=== PATIENT | male | born 1940 | race Caucasian/White ===

== ENCOUNTER 2022-09-27 08:54 | Oncology outpatient (recurring) (ONCR) | payer MEDICARE, OTHER, SELFPAY ==
[2022-09-18 10:31] LABS: Basophils # 0.2 10^3/uL (0.0-0.1); Basophils % 1.2 %; Eosinophils # 0.4 10^3/uL (0.0-0.8); Hematocrit 49.6 % (42.0-52.0); Hemoglobin 15.1 g/dL (11.7-16.6); Lymphocytes # 2.2 10^3/uL (0.8-4.8); Lymphocytes % 12.4 %; Mean Corpuscular HGB Conc 30.4 g/dL (30.0-36.0); Mean Corpuscular Volume 75.5 fl (80-94); Monocytes # 1.8 10^3/uL (0.2-0.9); Monocytes % 9.9 %; Neutrophils # 13.27 10^3/uL (1.8-7.7); Neutrophils % 73.8 %; Nucleated Red Blood Cells % 0 %; Platelet Count 356 10^3/cmm (130-400); Red Blood Count 6.57 10^6/uL (4.1-5.3); Red Cell Distribution Width 20.9 % (12.1-15.1)
[2022-09-18 10:56] LABS: LAB Peripheral Smear Sent for Review
[2022-09-18 11:06] LABS: Alanine Aminotransferase 28 U/L (0-41); Albumin Level 4.2 g/dL (3.5-5.2); Alkaline Phosphatase 133 U/L (40-130); Anion Gap 14.2 (5-19); Aspartate Amino Transferase 28 U/L (0-40); Blood Urea Nitrogen 16 mg/dL (8-23); Calcium 9.2 mg/dL (8.5-10.5); Carbon Dioxide 25 mmol/L (22-29); Chloride 103 mmol/L (98-107); Globulin 2.7 g/dL (1.3-4.6); Glucose 96 mg/dL (65-115); Iron 22 ug/dL (59-158); Lactate Dehydrogenase 142 U/L (135-225); Osmolality Calculated 287 mOsm/kg (285-295); Percent Saturation 5.3 % (20-50); Potassium 4.2 mmol/L (3.5-5.1); Sodium 138 mmol/L (136-145); Thyroid Stimulating Hormone 1.25 uIU/mL (0.27-4.20); Total Bilirubin 0.5 mg/dL (0.15-1.2); Total Iron Binding Capacity 408 mcg/dl; Total Protein 6.9 g/dL (6.6-8.7); Unsaturated Iron Binding 386 ug/dL (112-347); Vitamin B12 597 pg/mL (232-1245)
[2022-09-18 11:11] LABS: Mean Platelet Volume 10.6 fL (7.4-10.4)
[2022-09-18 11:12] LABS: Slide Review Slide Review Perform
== END 2022-10-01 23:59 | disposition home or self-care (01) ==
PROVIDERS: PCP Family Medicine; Visit Provider Internal Medicine Medical Oncology
DX: D45 Polycythemia vera (principal); D72.820 Lymphocytosis (symptomatic); D75.839 Thrombocytosis, unspecified; R53.83 Other fatigue; D50.9 Iron deficiency anemia, unspecified; F17.210 Nicotine dependence, cigarettes, uncomplicated; Z79.899 Other long term (current) drug therapy; Z79.82 Long term (current) use of aspirin
CPT/HCPCS: 36415; 80053; 82607; 83540; 83550; 83615; 84443; 85025; 99205; 99215

== ENCOUNTER → 2022-10-16 11:02 | Outpatient (BNVA) | payer MEDICARE, OTHER, SELFPAY | PROVIDERS: PCP Family Medicine; Visit Provider Nurse Practitioner | DX: D45 Polycythemia vera (principal) | CPT/HCPCS: 99214 ==

== ENCOUNTER 2022-10-29 11:05 | Oncology outpatient (recurring) (ONCR) | payer MEDICARE, OTHER, SELFPAY ==
[2022-10-16 11:58] LABS: Basophils # 0.1 10^3/uL (0.0-0.1); Basophils % 1.4 %; Eosinophils # 0.1 10^3/uL (0.0-0.8); Hematocrit 50.1 % (42.0-52.0); Hemoglobin 15.4 g/dL (11.7-16.6); Lymphocytes # 2.2 10^3/uL (0.8-4.8); Lymphocytes % 21.6 %; Mean Corpuscular HGB Conc 30.7 g/dL (30.0-36.0); Mean Corpuscular Hemoglobin 24.4 pg (28.0-34.0); Mean Corpuscular Volume 79.4 fl (80-94); Monocytes # 0.7 10^3/uL (0.2-0.9); Neutrophils # 6.98 10^3/uL (1.8-7.7); Neutrophils % 68.7 %; Nucleated Red Blood Cells % 0 %; Platelet Count 130 10^3/cmm (130-400); Red Blood Count 6.31 10^6/uL (4.1-5.3); Red Cell Distribution Width 21.5 % (12.1-15.1); White Blood Count 10.2 10^3/uL (4.0-10.0)
[2022-10-16 12:14] LABS: Alanine Aminotransferase 22 U/L (0-41); Albumin Level 4.1 g/dL (3.5-5.2); Alkaline Phosphatase 107 U/L (40-130); Anion Gap 16.6 (5-19); Aspartate Amino Transferase 19 U/L (0-40); Blood Urea Nitrogen 14 mg/dL (8-23); Calcium 9.1 mg/dL (8.5-10.5); Carbon Dioxide 24 mmol/L (22-29); Chloride 101 mmol/L (98-107); Globulin 2.9 g/dL (1.3-4.6); Glucose 91 mg/dL (65-115); Osmolality Calculated 284 mOsm/kg (285-295); Potassium 4.6 mmol/L (3.5-5.1); Sodium 137 mmol/L (136-145); Total Bilirubin 0.6 mg/dL (0.15-1.2)
[2022-10-16 12:36] LABS: Mean Platelet Volume 10.4 fL (7.4-10.4)
[2022-10-16 12:37] LABS: Slide Review Slide Review Perform
[2022-10-29 11:44] VITALS: BP 173/75; PULSE 69; RESP 18; TEMP 36.2; O2SAT 98
[2022-10-29 11:48] LABS: Basophils # 0.1 10^3/uL (0.0-0.1); Basophils % 1.4 %; Eosinophils # 0.1 10^3/uL (0.0-0.8); Eosinophils % 1.4 %; Hematocrit 50.5 % (42.0-52.0); Hemoglobin 16.2 g/dL (11.7-16.6); Lymphocytes # 1.9 10^3/uL (0.8-4.8); Lymphocytes % 22.5 %; Mean Corpuscular HGB Conc 32.1 g/dL (30.0-36.0); Mean Corpuscular Hemoglobin 26.1 pg (28.0-34.0); Mean Corpuscular Volume 81.5 fl (80-94); Mean Platelet Volume 10.5 fL (7.4-10.4); Monocytes # 0.7 10^3/uL (0.2-0.9); Monocytes % 8.2 %; Neutrophils # 5.47 10^3/uL (1.8-7.7); Neutrophils % 65.9 %; Nucleated Red Blood Cells % 0 %; Platelet Count 264 10^3/cmm (130-400); Red Cell Distribution Width 24.1 % (12.1-15.1); White Blood Count 8.3 10^3/uL (4.0-10.0)
[2022-10-29 12:26] LABS: Slide Review Slide Review Perform
[2022-10-29 13:34] VITALS: BP 128/79; PULSE 61; RESP 18; TEMP 36.3; O2SAT 96
== END 2022-11-01 23:59 | disposition home or self-care (01) ==
PROVIDERS: Nurse Practitioner; PCP Family Medicine; Visit Provider Internal Medicine Medical Oncology
DX: D45 Polycythemia vera (principal)
CPT/HCPCS: 36415; 80053; 85025; 99195; 99214

== ENCOUNTER 2022-11-20 13:05 | Oncology outpatient (recurring) (ONCR) | payer MEDICARE, OTHER, SELFPAY ==
[2022-11-20 13:41] VITALS: BP 146/88; PULSE 58; TEMP 35.9; O2SAT 99
[2022-11-20 14:13] LABS: Basophils % 0.5 %; Eosinophils # 0.1 10^3/uL (0.0-0.8); Eosinophils % 1.8 %; Hematocrit 41.8 % (42.0-52.0); Lymphocytes % 26.3 %; Mean Corpuscular HGB Conc 33.5 g/dL (30.0-36.0); Mean Corpuscular Hemoglobin 28.3 pg (28.0-34.0); Mean Corpuscular Volume 84.4 fl (80-94); Monocytes # 0.8 10^3/uL (0.2-0.9); Monocytes % 10.8 %; Neutrophils # 4.44 10^3/uL (1.8-7.7); Neutrophils % 59.9 %; Nucleated Red Blood Cells % 0 %; Platelet Count 124 10^3/cmm (130-400); Red Blood Count 4.95 10^6/uL (4.1-5.3); Red Cell Distribution Width 27.3 % (12.1-15.1); White Blood Count 7.4 10^3/uL (4.0-10.0)
[2022-11-20 14:25] LABS: Alanine Aminotransferase 30 U/L (0-41); Albumin Level 4.1 g/dL (3.5-5.2); Alkaline Phosphatase 102 U/L (40-130); Blood Urea Nitrogen 13 mg/dL (8-23); Calcium 9.3 mg/dL (8.5-10.5); Carbon Dioxide 27 mmol/L (22-29); Chloride 100 mmol/L (98-107); Globulin 2.9 g/dL (1.3-4.6); Glucose 92 mg/dL (65-115); Osmolality Calculated 284 mOsm/kg (285-295); Sodium 137 mmol/L (136-145); Total Bilirubin 0.3 mg/dL (0.15-1.2)
[2022-11-20 14:29] LABS: Anion Gap 14.9 (5-19); Aspartate Amino Transferase 26 U/L (0-40); Potassium 4.9 mmol/L (3.5-5.1)
[2022-11-20 14:37] LABS: Slide Review Slide Review Perform
== END 2022-12-01 23:59 | disposition home or self-care (01) ==
PROVIDERS: PCP Family Medicine; Visit Provider Internal Medicine Medical Oncology
DX: D45 Polycythemia vera (principal); D72.829 Elevated white blood cell count, unspecified; F17.210 Nicotine dependence, cigarettes, uncomplicated; Z79.899 Other long term (current) drug therapy; Z79.82 Long term (current) use of aspirin
CPT/HCPCS: 36415; 80053; 85025; 99214

== ENCOUNTER 2023-01-19 10:35 | Inpatient (IN) | payer MEDICARE, OTHER, SELFPAY ==
[2023-01-19] VITALS (40 sets, daily range): BP systolic 113–165; BP diastolic 51–86; PULSE 55–88; RESP 14–27; TEMP 36.1–36.8; O2SAT 90–99; BMI 27.3
--- NOTE | 2023-01-19 10:45 | ECG_ITS ---
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 Measurements Intervals [place] Rate: 57 P: 75 LA: 198 QRS: 43 QRSD: 110 T: 110 QT: 368 QTc: 359 Interpretive Statements SINUS BRADYCARDIA INFERIOR MYOCARDIAL INFARCTION , POSSIBLY ACUTE [40+ ms Q WAVE AND/OR ST/T ABNORMALITY IN II/aVF] ACUTE VA No previous ECG available for comparison Electronically Signed On 01-20-2023 7:58:27 CDT by Óscar Tipton M.D. [id number]
--- NOTE | 2023-01-19 10:45 | W.ED.CHESTPA ---
HPI - Chest Pain General: Chief Complaint: Chest Pain Stated Complaint: chest pain Time Seen by Provider: 01/19/23 10:45 History of Present Illness: Mr. Diaz is an 82-year-old gentleman with history of hypertension and hyperlipidemia as well as polycythemia presenting to the emergency department for chest pain. Upon review of EKG STEMI activation. Patient endorses symptoms onset this morning though is unsure of exactly how long. Left chest radiation to the arm and left neck severe in intensity with heaviness. Endorses dyspnea. Denies frequent similar episodes in the past. Only minimal transient relief with nitro x4 and he took 81 mg of aspirin this morning. No other specific changes in health, exacerbating, or alleviating factors identified. Patient is a smoker. Upon clarification of clinical history from patient's daughter is that apparently he began having chest pain and was seen at [place] [facility] approximately 1 month ago. Admission was recommended which she declined. Had follow-up and was started on probably an isosorbide type medication. Probably has had worsening chest pain over the past 3 days however severe today probably around 330 AM. Review of Systems General: Reports: 10 or more systems reviewed and unremarkable except in HPI and below PFSH ED PFSH: Medical History (Updated 01/22/23 @ 00:01 by SB Alba) Depression Essential hypertension Hypercholesteremia Hypertension Polycythemia rubra vera ST elevation myocardial infarction (STEMI) Surgical History History of back surgery x 2, in 1995 and in 2019 History of bilateral carpal tunnel release History of carotid endarterectomy Family History Brother Chronic kidney disease (CKD) Due to hepatitis Other CAD (coronary artery disease) Cancer Diabetes Hyperlipidemia Hypertension Lung disease Stroke Denies family history of Clotting disorder Dementia Psychiatric illness Suicide Anesthesia complication Bleeding disorder Social History Smoking and tobacco status: current every day smoker cigarettes Packs smoked per day: 1 Years cigarettes smoked: 60 Alcohol intake: never Physical Exam Const: COMMON NORMALS: alert GENERAL APPEARANCE: cooperative, well developed and ill appearing HENMT: COMMON NORMALS: normocephalic and atraumatic HEAD & SCALP: normocephalic and atraumatic THROAT: posterior oropharynx normal Eye: COMMON NORMALS: conjunctivae normal CONJUNCTIVA: Yes conjunctivae normal SCLERA: sclerae normal Neck/C-Spine: COMMON NORMALS: supple GENERAL: Yes trachea midline Resp: COMMON NORMALS: clear to auscultation bilaterally EFFORT & INSPECTION: Yes able to speak in complete sentences AUSCULTATION: clear to auscultation bilaterally Cardio: COMMON NORMALS: regular rate and regular rhythm RATE: regular rate RHYTHM: regular rhythm GI: COMMON NORMALS: Soft to palpation PALPATION: Yes Soft to palpation and No Tenderness to palpation present (GI) Extremity: GENERAL: Yes normal exam except as noted and No edema Neuro: COMMON NORMALS: moves all extremities SENSORIUM/ORIENTATION: Yes alert and No Orientation impaired Course Vital Signs: Vital signs: Vital Signs Temperature 97.9 F 01/21/23 08:00 Pulse Rate 114 H 01/21/23 11:49 Respiratory Rate 24 H 01/21/23 11:00 Blood Pressure 137/86 01/21/23 11:00 Pulse Oximetry 95 01/21/23 11:49 Oxygen Delivery Me thod Room Air 01/21/23 11:48 Oxygen Flow Rate 2 01/21/23 10:00 MDM - Chest Pain Medical Decision Making 82-year-old gentleman presenting with chest pain. STEMI activation called upon review of chest x-ray. Patient assessed at bedside. Somewhat limited history with regards to detail which is apparently chronic. I do not appreciate focal neurologic deficits. Patient is somewhat ill-appearing. Symmetric pulses end clear lung sounds. Balance of aspirin ordered as well as Plavix and heparin. Cardiology at bedside for evaluation. Chest x-ray with no lobar consolidation or pneumothorax. Laboratory studies pending at time of admission as patient is taken emergently to [facility] for left heart cath. Overall condition remained similar. He was noted to have bradycardia with maintained blood pressure and occasional arrhythmia with PVCs. Medical Records I reviewed the patient's medical records. Lab Data I reviewed the patient's lab results. 01/20/23 03:47 01/20/23 03:47 Radiology Impressions Chest X-Ray 01/19/23 10:46 IMPRESSION: No acute cardiopulmonary abnormality. Laboratory Results WBC 12.4 10^3/uL (4.0-10.0) H 01/19/23 10:45 RBC 3.92 10^6/uL (4.1-5.3) L 01/19/23 10:45 Hgb 13.8 g/dL (11.7-16.6) 01/19/23 10:45 Hct 41.2 % (42.0-52.0) L 01/19/23 10:45 MCV 105.1 fl (80-94) H 01/19/23 10:45 MCH 35.2 pg (28.0-34.0) H 01/19/23 10:45 MCHC 33.5 g/dL (30.0-36.0) 01/19/23 10:45 RDW Not Reportable 01/19/23 10:45 Plt Count 215 10^3/cmm (130-400) 01/19/23 10:45 MPV 12.1 fL (7.4-10.4) H 01/19/23 10:45 Neut % (Auto) 67.6 % 01/19/23 10:45 Lymph % (Auto) 18.6 % 01/19/23 10:45 Arroyo % (Auto) 11.2 % 01/19/23 10:45 Eos % (Auto) 1.0 % 01/19/23 10:45 Baso % (Auto) 0.8 % 01/19/23 10:45 Neut # (Auto) 8.41 10^3/uL (1.8-7.7) H 01/19/23 10:45 Lymph # (Auto) 2.3 10^3/uL (0.8-4.8) 01/19/23 10:45 Arroyo # (Auto) 1.4 10^3/uL (0.2-0.9) H 01/19/23 10:45 Eos # (Auto) 0.1 10^3/uL (0.0-0.8) 01/19/23 10:45 Baso # (Auto) 0.1 10^3/uL (0.0-0.1) 01/19/23 10:45 Nucleated RBC % (auto) 0 % 01/19/23 10:45 Nucleated RBCs # 0.0 /100WBC 01/19/23 10:45 Poikilocytosis Trace 01/19/23 10:45 Anisocytosis 2+ H 01/19/23 10:45 Macrocytosis 3+ H 01/19/23 10:45 Target Cells Trace 01/19/23 10:45 Acanthocytes (Spur) Trace 01/19/23 10:45 PT 14.30 SECONDS (12.1-14.9) 01/19/23 10:45 INR 1.07 (0.8-1.2) 01/19/23 10:45 APTT 28.1 SECONDS (23.9-36.7) 01/19/23 10:45 Sodium 134 mmol/L (136-145) L 01/19/23 10:45 Potassium 4.5 mmol/L (3.5-5.1) 01/19/23 10:45 Chloride 99 mmol/L (98-107) 01/19/23 10:45 Carbon Dioxide 24 mmol/L (22-29) 01/19/23 10:45 Anion Gap 15.5 (5-19) 01/19/23 10:45 BUN 15 mg/dL (8-23) 01/19/23 10:45 Creatinine 1.0 mg/dL (0.7-1.2) 01/19/23 10:45 GFR Calculation Not Reportable 01/19/23 10:45 Glucose 102 mg/dL (65-115) 01/19/23 10:45 Calculated Osmolality 279 mOsm/kg (285-295) L 01/19/23 10:45 Calcium 8.9 mg/dL (8.5-10.5) 01/19/23 10:45 Total Bilirubin 0.6 mg/dL (0.15-1.2) 01/19/23 10:45 AST 17 U/L (0-40) 01/19/23 10:45 ALT 19 U/L (0-41) 01/19/23 10:45 Alkaline Phosphatase 113 U/L (40-130) 01/19/23 10:45 Troponin T Baseline 18 ng/L (0-15) H 01/19/23 10:45 NT-Pro-B Natriuret Pep 251 pg/mL (0-450) 01/19/23 10:45 Total Protein 7.3 g/dL (6.6-8.7) 01/19/23 10:45 Albumin 4.4 g/dL (3.5-5.2) 01/19/23 10:45 Globulin 2.9 g/dL (1.3-4.6) 01/19/23 10:45 Lipase 23 U/L (13-60) 01/19/23 10:45 Critical Care Time Critical Care Time: Critical Care Time: Yes Total Critical Care Time: 32 Attestation: Due to a high probability of clinically significant, possibly life threatening deterioration, the patient required my highest level of attention and preparedness to intervene emergently and I personally spent this critical care time directly and personally managing the patient. This critical care time included obtaining a history; examining the patient; pulse oximetry; ordering and review of laboratory and imaging studies; arranging urgent treatment with development of a management plan; evaluation of patient's response to treatment; frequent reassessment; and, discussions with other providers as applicable. It was exclusive of separately billable procedures. Primary system involved is cardiovascular Discharge Plan Discharge Patient Disposition: Admitted As Inpatient Admit Provider: Moustapha Wright Clinical Impression: ST elevation myocardial infarction (STEMI) Condition: Stable Discharge Diet: Cardiac Discharge Activity: Increase activity as tolerated Coding Level of Care Code ED Bunch Breaker Machine Operator for Angy Ngo
--- NOTE | 2023-01-19 10:46 | XRR_ITS ---
PROCEDURE INFORMATION: Exam: XR Chest Exam date and time: 01/19/2023 10:57 AM Age: 82 years old Clinical indication: Pain; Chest pressure; Additional info: Cp TECHNIQUE: Imaging protocol: Radiologic exam of the chest. Views: 1 view. COMPARISON: No relevant prior studies available. FINDINGS: Lungs: No focal airspace disease. Pleural spaces: Unremarkable. No pleural effusion. No pneumothorax. Heart/Mediastinum: Cardiomediastinal silhouette is within normal limits. Bones/joints: Unremarkable. XR/XR chest 1V portable [id number] IMPRESSION: No acute cardiopulmonary abnormality.
[2023-01-19] MEDS: clopidogrel 300 mg Tablet 600 MG PO (10:51)
[2023-01-19] MEDS: heparin 5,000 unit/mL INJ 1 mL 4000 UNIT IVP (10:52)
[2023-01-19] MEDS: aspirin 81 mg Chew Tablet 243 MG PO (10:52)
[2023-01-19] MEDS: sodium chloride 0.9% 1,000 ML 999 ML IV (10:58)
[2023-01-19] MEDS: fentaNYL 50 mcg/mL INJ 2mL IVP (10:58)
--- NOTE | 2023-01-19 11:02 | XACV_ITS ---
Exam Room: [facility] Ht: 170 cm Wt: 79 kg BSA: 1.95 m2 Gender: Male : 1940 Exam Priority: Routine Indication(s): - Acute inferior GA Procedure(s): Procedure Description: Diagnostic procedure Procedure Description: PCI procedure Procedure Description: Left Heart Catheterization Procedure Description: Left ventriculography Procedure Description: PTCA Procedure Description: Coronary Angiography Adriana MCINTYRE; Diagnostic Cath Status: Emergency Diagnostic Findings * Patient arrived as a STEMI alert. Chest pain for several hours prior to arrival. Time delay between onset of pain and arrival to the emergency room is approximately 7 hours. EKG reveals acute ST segment elevation in the inferior leads. Patient had some episodes of bradycardia and junctional rhythm in the emergency room. Appropriate medications given in the ER. * Fluoroscopy revealed heavily calcified arteries to include all 3 major vessels. The right coronary artery appeared to be the culprit vessel. It is closed in the midportion. The area of closure is very heavily calcified. The left main coronary artery is unremarkable. The circumflex is essentially normal. The LAD is occluded in the proximal portion. As mentioned, all vessels are heavily calcified.. PCI Status: Emergency PCI LVEF Assessed: Yes PCI Indication: Immediate PCI for STEMI Interventional Findings * All vessels are heavily calcified. The occluded right coronary artery was difficult to negotiate due to the heavy calcification. A cougar wire would not cross the lesion. A run-through wire finally crossed after many minutes of attempting to cross the vessel. The calcification prevented the wire from crossing. A guide liner had to be used in order to support the wire. Initially I attempted a 2 mm balloon which would not cross the lesion. I placed a 1.2 mm balloon and with great difficulty was able to cross the lesion. Angioplasty was undertaken with a 1.2 mm balloon followed by 2 mm balloon followed by 3 mm balloon. A 4 mm balloon would not cross the lesion nor would a 4 mm stent. The procedure was terminated after attempts were made to cross the vessel. There was distal flow in the artery at the end of the procedure however my suspicions are great that the vessel will not stay open. This patient would be a candidate for an atherectomy. There was a significant delay in crossing the lesion due to the heavy calcification.. Decision for PCI with Surgical Consult: No PCI for Multi-vessel Disease: No Conclusions 1. Acute inferior wall myocardial infarction with occluded right coronary artery heavily calcified. Difficult intervention due to heavy calcification. Unable to pass a stent. Recommendations * Coronary artery atherectomy. Interventional RX Recommendation: PCI w/o planned CABG Diagnostic RX Recommendation: PCI w/o planned CABG Anticoagulation: Heparin Ventriculography Ejection Fraction: 50.0 % Pressures Phase:Rest AO : 93 / 57 ( 75 ) @ 12:30:00 PM 94 / 56 ( 74 ) @ 12:35:00 PM 114 / 71 ( 92 ) @ 12:43:00 PM 91 / 56 ( 73 ) @ 12:48:00 PM 93 / 63 ( 78 ) @ 12:54:00 PM 110 / 49 ( 72 ) @ 1:11:00 PM 95 / 61 ( 77 ) @ 1:14:00 PM 151 / 70 ( 97 ) @ 1:21:00 PM 132 / 62 ( 81 ) @ 1:21:00 PM LV : 138 / 7 / 27 @ 1:17:00 PM 128 / 28 / 34 @ 1:20:00 PM 147 / 6 / 33 @ 1:21:00 PM 147 / 6 / 32 @ 1:21:00 PM Valves Phase:DefaultPhase AV : 0.0 @ 12:35:13 PM 0.0 @ 12:35:13 PM AV Mean Gradient: 0.0 @ 12:35:13 PM Clinical Evaluation EBL: 5mL-10mL Procedural Details Procedure started. Pre-Procedure Time Out. Identified patient by full name and date of as verbalized by the patient/guarantor. Does the consent match the physician's order: N/A Emergent. Accurate & Complete Informed Consent: N/A Emergent. Inpatient/Outpatient History & Physical on Chart: N/A Emergent. If H&P is completed, is and addenduem needed: N/A Emergent; If yes, is the addendum complete: N/A Emergent. Visualize and Verify Site with Patient/Guarantor: N/A. Relevant Radiology Images available: N/A Emergent. Pre-op teaching completed and patient verbalized understanding. The risks, benefits, and alternatives of sedation and/or procedure were discussed by physician. The patient agrees to continue. Utilization Management Um Nurse Indications: ACS <= 24 hours. Correct patient, site and procedure confirmed by cath team. Current diagnosis: STEMI. PERRLA. Strong, equal hand network support manager bilaterally. Lungs clear x 5 lobes. IV Site on Arrival: 20 gauge in the right anticubital. IV Site on Arrival: 20 gauge in the left anticubital. IV Fluids: 0.9% NaCl at KVO. 100 mL infused prior to engineering laboratory technician. Pre Procedural Pulses: bilateral radial was 2+. Pre Procedural Pulses: bilateral dorsalis pedis was 1+. Oxygen started at 2liters/min via nasal canula. right groin was prepped with chloroprep then draped in the usual sterile fashion. right radial was prepped with chloroprep then draped in the usual sterile fashion. Baseline sample Acquired. HR: 46 BPM. Physician notified. Physician arrived. Physician scrubbed in. Correct Patient: N/A Emergent; Correct Procedure: N/A Emergent; Correct Site: N/A Emergent; Correct Patient Position: N/A Emergent; Correct Supplies: N/A Emergent; Dried Flammable Prep: N/A Emergent; Blood Products Available: N/A Emergent;. Admit Source: Emergency department. Lidocaine 1% infiltrated to the right radial. Arterial access obtained. 6 frisian JR 4 guide catheter was inserted over the wire. [place] guidewire was advanced through the guide catheter to lesion in the distal RCA. Multiple views taken of right coronary artery. Guidewire out. Runthrough guidewire was advanced through the guide catheter to lesion in the distal RCA. 2.0x12 Balloon inserted to lesion in the mid RCA. Uninflated balloon removed. Guideliner in. 1.2x12 Balloon inserted to lesion in the mid RCA. Inflation number : 1 A AB MINI TREK 1.20X12 RX BALLOON was prepped and advanced across the Mid RCA , then inflated to 14 HAMILTON for 0:32 seconds. Inflation number: 2 The AB MINI TREK 1.20X12 RX BALLOON was reinflated across the Mid RCA, to 14 HAMILTON for 0:31 seconds. Results checked. Balloon out. Delay in PCI related to difficulty crossing lesion. Inflation number : 3 A AB MINI TREK 2.00X12 RX BALLOON was prepped and advanced across the Mid RCA , then inflated to 14 HAMILTON for 0:34 seconds. PCI Indication : Immediate PCI for STEMI. Balloon out. 3.0x12 NC Balloon inserted to lesion in the mid RCA. Inflation number : 4 A MDT NC EUPHORA RX 3.24N03AK BALLOON was prepped and advanced across the Mid RCA , then inflated to 12 HAMILTON for 0:40 seconds. Balloon out. 4.0x12 Stent inserted to lesion in the mid RCA. Intact stent removed. 4.0x12 NC Balloon inserted to lesion in the mid RCA. Uninflated balloon, guideliner out. Guide catheter out. 6 frisian XB 3 guide catheter was inserted over the wire. Multiple views taken of left coronary artery. A 5 frisian Angled Pig catheter in over wire. EDP Sample taken: LV 138/7,27; HR: 60 BPM; SpO2: 94%. LV gram performed in MCCRAY @ 10 mL/second for a total of 30 mL. EDP Sample taken: LV 128/28,34; HR: 63 BPM; SpO2: 94%. EDP Sample taken: LV 147/6,33; HR: 65 BPM; SpO2: 94%. Pullback taken: LV 147/6,32; AO 151/70(97); Mean: 0mmHg, Peak to Peak: 0mmHg, SEP: 9sec/min; HR: 65 BPM; SpO2: 94%. Catheter out. Physician scrubbed out. A TR Band was successful obtaining hemostatsis at the Right Radial artery insertion site. Post Procedure: Pulses reassessed and unchanged. PERRLA. Strong, equal hand network support manager bilaterally. No VTE prophylaxis required. Medication's Wasted: Lidocaine 1% = 3 mL. Medication's Wasted: Nitro = 49.8 mg. Medication's Wasted: Heparin = 6000 units. Total IV fluids: 69 mL. PCI Indication: STEMI. Post-op diagnosis: inferior wall GA. Complications: none. Estimated blood loss: 5mL-10mL. Responsiveness - Normal response to verbal stimuli; alert and oriented, PERRLA. Airway - Unaffected, no intervention required; spontaneous ventilation. Circulation: W/N/L, pulses unchanged. Nausea/Vomiting: No. Procedure completed. Patient transferred by bed to ICU. Vital chart was stopped. Access Site Site: Right Radial artery Sheath Size: 6 Fr Hemostasis Method: TR Band Hemostasis Success: Successful Procedure Medications Start: 11:23 AM Stop: 11:23 AM Medication: Versed Amount: 1 mg Route: I.V. Start: 11:23 AM Stop: 11:23 AM Medication: Fentanyl Amount: 50 mcg Route: I.V. Start: 11:26 AM Stop: 11:26 AM Medication: Nitrogylcerin Amount: 200 mcg Route: I.A. Start: 12:02 PM Stop: 12:02 PM Medication: Versed Amount: 1 mg Route: I.V. Start: 12:02 PM Stop: 12:02 PM Medication: Fentanyl Amount: 50 mcg Route: I.V. I, the attending physician, have reviewed and verified all procedure medications. Yes, all medications given per verbal order Report Signatures Finalized by Dr. Moustapha Wright MD on 01/19/2023 12:59 PM
[2023-01-19 11:08] LABS: Basophils # 0.1 10^3/uL (0.0-0.1); Basophils % 0.8 %; Eosinophils # 0.1 10^3/uL (0.0-0.8); Hematocrit 41.2 % (42.0-52.0); Hemoglobin 13.8 g/dL (11.7-16.6); Lymphocytes # 2.3 10^3/uL (0.8-4.8); Lymphocytes % 18.6 %; Mean Corpuscular HGB Conc 33.5 g/dL (30.0-36.0); Mean Corpuscular Hemoglobin 35.2 pg (28.0-34.0); Mean Corpuscular Volume 105.1 fl (80-94); Mean Platelet Volume 12.1 fL (7.4-10.4); Monocytes # 1.4 10^3/uL (0.2-0.9); Monocytes % 11.2 %; Neutrophils # 8.41 10^3/uL (1.8-7.7); Neutrophils % 67.6 %; Nucleated Red Blood Cells % 0 %; Platelet Count 215 10^3/cmm (130-400); Red Blood Count 3.92 10^6/uL (4.1-5.3); White Blood Count 12.4 10^3/uL (4.0-10.0)
--- NOTE | 2023-01-19 11:16 | PM.HP ---
Providers/Chief Complaint Admitting Physician: benita Primary Care Provider: Pearl Chua MD Chief Complaint: chest pain History of Present Illness Mitchell Diaz is a 82 year old male who with no known history of coronary artery disease with a history of vascular disease. He had a carotid endarterectomy. He does have hypertension and dyslipidemia. He has been a heavy smoker 1 pack/day for many years. Apparently has been having chest pain off and on for several weeks. He saw someone up at [facility] 4 to 6 weeks ago. He was put on a long-acting nitroglycerin preparation isosorbide mononitrate. He continues to have chest pain several times a day. This morning at about 330 he woke up with chest pain and it would not go away. He took 4 nitroglycerin. His daughter brought him down to the emergency room. His EKG revealed ST elevation in the inferior leads. Here he was given 243 mg of aspirin, 4000 units of heparin, 600 mg of Plavix and 50 mcg of fentanyl. He had transient bradycardia and junctional rhythm in the emergency room. He was taken directly to the cardiac catheterization laboratory. He takes hydroxyurea for polycythemia rubra vera. He has had multiple other surgeries. Review of Systems Narrative: His review of systems is not available due to the acute nature of the illness. Medications/Allergies Home Medications Medication Instructions Recorded Confirmed Last Taken Type amlodipine 10 mg-benazepril 20 mg 1 cap PO DAILY 09/18/22 11/20/22 Unknown History capsule aspirin 81 mg tablet,delayed 81 mg PO DAILY 09/18/22 11/20/22 Unknown History release atorvastatin 40 mg tablet 40 mg PO DAILY 09/18/22 11/20/22 Unknown History cholecalciferol (vitamin D3) 125 125 mcg PO DAILY 09/18/22 11/20/22 Unknown History mcg (5,000 unit) capsule spironolactone 25 mg tablet 25 mg PO DAILY 09/18/22 11/20/22 Unknown History prochlorperazine maleate 10 mg 10 mg PO Q6H PRN nausea and 10/02/22 11/20/22 Unknown Rx tablet (Compazine) vomiting #30 tabs hydroxyurea 500 mg capsule 500 mg PO BID #60 caps 12/13/22 Unknown Rx Allergies Allergy/AdvReac Type Severity Reaction Status Date / Time No Known Allergies Allergy Verified 11/20/22 14:23 PFSH Acute PFSH: Medical History (Updated 01/19/23 @ 12:32 by Moustapha Wright MD) Depression Essential hypertension Hypercholesteremia Hypertension Polycythemia rubra vera Surgical History History of back surgery x 2, in 1995 and in 2019 History of bilateral carpal tunnel release History of carotid endarterectomy Family History Brother Chronic kidney disease (CKD) Due to hepatitis Other CAD (coronary artery disease) Cancer Diabetes Hyperlipidemia Hypertension Lung disease Stroke Denies family history of Clotting disorder Dementia Psychiatric illness Suicide Anesthesia complication Bleeding disorder Social History Smoking and tobacco status: current every day smoker cigarettes Packs smoked per day: 1 Years cigarettes smoked: 60 Alcohol intake: never Vitals/I&O/Wt Last Vital Signs Temp 98.2 F 01/19/23 10:45 Pulse 69 01/19/23 10:45 Resp 14 01/19/23 10:58 BP 142/72 01/19/23 10:44 Pulse Ox 99 01/19/23 10:58 O2 Del Method Room Air 01/19/23 10:45 Weight last 48 hrs Weight 175 lb Physical Exam Narrative: GENERAL: In general he looks to be in mild distress. Having chest pain. HEENT: Exam within normal limits. NECK: Supple without jugular vein distention. The carotid upstroke is normal without bruits. BACK: Exam normal. LUNGS: Clear. HEART: Regular rate and rhythm. ABDOMEN: Benign without organomegaly or tenderness. EXTREMITIES: No edema. NEUROLOGIC: Exam normal. SKIN: Unremarkable. Data 01/19/23 10:45 01/19/23 10:45 A&P Assessment and plan (1) ST elevation myocardial infarction (STEMI): (2) Polycythemia rubra vera: (3) Essential hypertension: (4) Hypercholesteremia: Plan He is having an acute inferior wall myocardial infarction. Cardiac catheterization laboratory immediately. Attestations Medical Necessity Statement*: Requires hospitalization for management of an acute inferior wall IL. Hospital stay will cross 2 midnights. and Moderate Time for a total of 40 minutes, includes reviewing past or interval history, examining/interviewing patient, placing orders, counseling patient/family/other support, updating patient/family/other support, discussing plan of care with staff, communicating with other healthcare providers, documenting encounter and coordinating care Diagnoses ST elevation myocardial infarction (STEMI) I21.3 Polycythemia rubra vera D45 Essential hypertension I10 Hypercholesteremia E78.00
[2023-01-19 11:17] LABS: INR 1.07 (0.8-1.2)
[2023-01-19 11:18] LABS: Partial Thromboplastin Time 28.1 SECONDS (23.9-36.7)
[2023-01-19 11:22] LABS: Troponin(5th) Baseline 18 ng/L (0-15)
[2023-01-19 11:25] LABS: Add RBC Morph Yes; Anisocytosis 2+; Poikilocytosis Trace; RBC Morph Comp No; Slide Review Slide Review Perform
[2023-01-19 11:26] LABS: Acanthocytes Trace; Macrocytosis 3+; Target Cells Trace
[2023-01-19 11:30] LABS: Alanine Aminotransferase 19 U/L (0-41); Albumin Level 4.4 g/dL (3.5-5.2); Alkaline Phosphatase 113 U/L (40-130); Anion Gap 15.5 (5-19); Aspartate Amino Transferase 17 U/L (0-40); Blood Urea Nitrogen 15 mg/dL (8-23); Calcium 8.9 mg/dL (8.5-10.5); Carbon Dioxide 24 mmol/L (22-29); Chloride 99 mmol/L (98-107); Globulin 2.9 g/dL (1.3-4.6); Glucose 102 mg/dL (65-115); Lipase 23 U/L (13-60); NT Pro B Type Natriuretic Pept 251 pg/mL (0-450); Osmolality Calculated 279 mOsm/kg (285-295); Potassium 4.5 mmol/L (3.5-5.1); Sodium 134 mmol/L (136-145); Total Bilirubin 0.6 mg/dL (0.15-1.2); Total Protein 7.3 g/dL (6.6-8.7)
--- NOTE | 2023-01-19 12:46 | ECG_ITS ---
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 Measurements Intervals [place] Rate: 54 P: 68 MO: 199 QRS: 32 QRSD: 109 T: 33 QT: 427 QTc: 407 Interpretive Statements SINUS BRADYCARDIA PROBABLE INFERIOR MYOCARDIAL INFARCTION , AGE INDETERMINATE [35 ms Q WAVE IN II/aVF] Compared to ECG 01/19/2023 10:41:40 No significant changes Electronically Signed On 01-20-2023 8:03:00 CDT by Óscar Tipton M.D. [email or web address] [email or web address]/store/[id number]
[2023-01-19 13:15] LABS: Troponin 5 2HR 19.16 ng/L (0-15)
[2023-01-19 13:17] LABS: Troponin 5 2HR Delta 1.16 ABS# (0-10)
[2023-01-19] MEDS: fentaNYL 50 mcg/mL INJ 2mL 25 MCG IVP (13:21)
[2023-01-19] MEDS: sodium chloride 0.9% 1,000 ML 100 ML IV (13:22)
--- NOTE | 2023-01-19 16:09 | ECG_ITS ---
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 Measurements Intervals [place] Rate: 73 P: 68 [place]: 208 QRS: 32 QRSD: 91 T: 94 QT: 397 QTc: 439 Interpretive Statements SINUS RHYTHM NONSPECIFIC T-WAVE ABNORMALITY Compared to ECG 01/19/2023 13:22:50 T-wave abnormality now present Sinus bradycardia no longer present Myocardial infarct finding no longer present Electronically Signed On 01-20-2023 8:02:36 CDT by Óscar Tipton M.D. [id number]
[2023-01-19 17:38] LABS: Troponin 5 6HR 74.26 ng/L (0-15)
[2023-01-19 17:43] LABS: Troponin 5 6HR Delta 56.26 ng/L (0-12)
[2023-01-19] MEDS: enoxaparin 80 mg/0.8 mL Syringe SUBCUT (17:47)
[2023-01-19] MEDS: hydroxyurea 500 mg Capsule PO (17:48)
[2023-01-19] MEDS: temazepam 15 mg Capsule PO (19:46)
[2023-01-19] MEDS: acetaminophen 325 mg Tablet 650 MG PO (23:46)
[2023-01-20] VITALS (40 sets, daily range): BP systolic 122–172; BP diastolic 62–87; PULSE 59–94; RESP 13–22; O2SAT 90–97
[2023-01-20 04:05] LABS: Basophils # 0.1 10^3/uL (0.0-0.1); Basophils % 0.9 %; Eosinophils # 0.1 10^3/uL (0.0-0.8); Hematocrit 38.3 % (42.0-52.0); Hemoglobin 12.8 g/dL (11.7-16.6); Lymphocytes # 2.1 10^3/uL (0.8-4.8); Mean Corpuscular HGB Conc 33.4 g/dL (30.0-36.0); Mean Corpuscular Hemoglobin 34.8 pg (28.0-34.0); Mean Corpuscular Volume 104.1 fl (80-94); Monocytes # 1.3 10^3/uL (0.2-0.9); Neutrophils # 6.69 10^3/uL (1.8-7.7); Neutrophils % 64.6 %; Nucleated Red Blood Cells % 0 %; Platelet Count 190 10^3/cmm (130-400); Red Blood Count 3.68 10^6/uL (4.1-5.3); White Blood Count 10.3 10^3/uL (4.0-10.0)
[2023-01-20] MEDS: enoxaparin 80 mg/0.8 mL Syringe SUBCUT (04:14)
[2023-01-20 04:23] LABS: Blood Urea Nitrogen 12 mg/dL (8-23); Calcium 8.9 mg/dL (8.5-10.5); Carbon Dioxide 24 mmol/L (22-29); Chloride 101 mmol/L (98-107); Glucose 80 mg/dL (65-115); Osmolality Calculated 279 mOsm/kg (285-295); Sodium 135 mmol/L (136-145)
[2023-01-20 04:42] LABS: Anion Gap 14.2 (5-19); Potassium 4.2 mmol/L (3.5-5.1)
[2023-01-20 04:57] LABS: Slide Review Slide Review Perform
[2023-01-20] MEDS: clopidogrel 75 mg Tablet PO (08:16)
[2023-01-20] MEDS: aspirin 81 mg EC Tablet PO (08:16)
[2023-01-20] MEDS: hydroxyurea 500 mg Capsule PO ×2 (08:16→18:22)
[2023-01-20] MEDS: atorvastatin 40 mg Tablet PO (08:16)
--- NOTE | 2023-01-20 08:17 | PM.PN ---
Subjective Subjective: Mitchell has had an uneventful night. Yesterday he came in with an inferior wall NM with an occluded right. There is a significant amount of calcium. I was able to get the artery open but there is greater than 95% residual stenosis due to the calcium. Calcium would not budge. He fortunately has been stable overnight. His initial troponin was 18. Second troponin was 19 and the third 74. I am hopeful the vessel has stayed patent overnight. Vitals/I&O/Wt Last Vital Signs Temp 97.6 F 01/19/23 19:00 Pulse 69 01/20/23 06:30 Resp 18 01/20/23 06:30 BP 154/77 01/20/23 06:30 Pulse Ox 90 01/20/23 06:30 O2 Del Method Room Air 01/20/23 06:30 01/19/23 01/20/23 01/20/23 22:59 06:59 14:59 Intake Total 1000 / 2000 250 / 2250 Output Total 1000 / 1000 1225 / 2225 Balance 0 / 1000 -975 / 25 Weight last 48 hrs Weight 175 lb Physical Exam Narrative: GENERAL: In general he looks and feels well this morning. No chest pain. HEENT: Exam within normal limits. NECK: Supple without jugular vein distention. The carotid upstroke is normal without bruits. BACK: Exam normal. LUNGS: Clear. HEART: Regular rate and rhythm. ABDOMEN: Benign without organomegaly or tenderness. EXTREMITIES: No edema. The right-sided radial artery area is patent with no bleeding, hematoma or other vascular anomaly. NEUROLOGIC: Exam normal. SKIN: Unremarkable. Data 01/20/23 03:47 01/20/23 03:47 A&P Assessment and plan (1) Hypercholesteremia: (2) Essential hypertension: (3) ST elevation myocardial infarction (STEMI): (4) Polycythemia rubra vera: Plan I have carefully looked at the films to make sure there is no dissection in the area of the right coronary artery. We will proceed today with atherectomy and hopefully subsequently stent the artery. Attestations Medical Necessity Statement*: Remains in ICU for treatment of an inferior wall NM. and Moderate Time for a total of 40 minutes, includes reviewing past or interval history, examining/interviewing patient, placing orders, counseling patient/family/other support, updating patient/family/other support, discussing plan of care with staff, communicating with other healthcare providers, documenting encounter and coordinating care Diagnoses Hypercholesteremia E78.[address] elevation myocardial infarction (STEMI) I21.3 Polycythemia rubra vera D45
--- NOTE | 2023-01-20 08:20 | XACV_ITS ---
Exam Room: [facility] Ht: 170 cm Wt: 79 kg BSA: 1.95 m2 Gender: Male : 1940 Exam Priority: Routine Procedure(s): Procedure Description: Diagnostic procedure Procedure Description: PCI procedure Procedure Description: Drug Eluting Coronary Stent Procedure Description: PTCA Procedure Description: Coronary Atherectomy Procedure Description: Coronary Angiography Adriana MCINTYRE; Diagnostic Cath Status: Urgent Diagnostic Findings * INDICATION: Patient had presented with ST elevation SC yesterday and was found to have totally occluded RCA. Balloon angioplasty restored the blood flow however vessel was severely calcified and stent could not be delivered. Plan for arthrectomy and stent placement today. * Left system not injected, for detailed report, please refer to cardiac cath report from 01/19/2023. Today, plan for PCI of the RCA. * Mid Right Coronary Artery: critical, calcified 95% stenosis, MICHAEL: 3 flow. * Coronary angiography shows right dominance. PCI Status: Elective PCI Indication: Staged PCI Interventional Findings * Procedure detail: We engaged RCA with JR4 guide catheter. IV heparin was administered to maintain ACT above 250 S. We crossed the stenosis with run-through guidewire. Using [employer] microcatheter, we exchanged run-through wire and placed a Viper wire. Multiple runs of orbital atherectomy were performed. We then exchanged the Viper wire back to run-through wire through the microcatheter. We then predilated the stenosis with a 4.0 x 20 mm semicompliant balloon. This was followed by placement of 4.0 x 26 mm resolute Alejandra drug-eluting stent. This was postdilated with 4.0 x 15 mm NC balloon. At this time final angiogram was performed that showed good stent expansion. Guidewire and guide catheter were removed. Patient left the Judo Teacher in a stable condition.. * Mid Right Coronary Artery: 95% stenosis treated with a AB TREK 4.00X20 RX BALLOON, ALEXA Morrison ALEJANDRA 4.0X26 RICKY, and ALEXA OHARA EUPHORA RX [id number] BALLOON. 10% residual stenosis, MICHAEL: 3 flow. Conclusions 1. There is critical RCA stenosis. Status post successful revascularization with orbital arthrectomy and 1 stent placement. 2. Mid Right Coronary Artery was treated with a Balloon, Drug Eluting Stent, and Balloon. Recommendations * Dual antiplatelet therapy with aspirin and plavix. * High intensity statin therapy. * Outpatient cardiology follow up in 2-4 weeks. Interventional RX Recommendation: PCI w/o planned CABG Diagnostic RX Recommendation: PCI w/o planned CABG Anticoagulation: Heparin Pressures Phase:Rest AO : 120 / 71 ( 93 ) @ 10:16:00 AM 109 / 78 ( 94 ) @ 10:20:00 AM 115 / 66 ( 89 ) @ 10:25:00 AM 177 / 175 ( 156 ) @ 10:29:00 AM 83 / 43 ( 59 ) @ 10:31:00 AM 95 / 49 ( 65 ) @ 10:33:00 AM 86 / 44 ( 62 ) @ 10:35:00 AM 105 / 49 ( 70 ) @ 10:42:00 AM 139 / 83 ( 111 ) @ 10:44:00 AM 102 / 66 ( 82 ) @ 10:56:00 AM Clinical Evaluation EBL: 5mL-10mL Procedural Details Procedure Consent Obtained. Admit Source: In Patient. PCI Indication : Staged PCI. Pre-Procedure Time Out. Identified patient by full name and date of as verbalized by the patient/guarantor. Does the consent match the physician's order: Yes. Accurate & Complete Informed Consent: Yes. Inpatient/Outpatient History & Physical on Chart: Yes. If H&P is completed, is and addenduem needed: No; If yes, is the addendum complete: N/A. Visualize and Verify Site with Patient/Guarantor: N/A. Relevant Radiology Images available: Yes. The risks, benefits, and alternatives of sedation and/or procedure were discussed by physician. The patient agrees to continue. Procedure started. [facility] Clinical Fraility Score: 4: Vulnerable. Judo Teacher Indications: staged PCI. Chest Pain Symptom Assessment: Typical Angina Symptoms. Correct patient, site and procedure confirmed by cath team. PERRLA. Strong, equal hand housing grant analyst bilaterally. Lungs clear x 5 lobes. IV Site on Arrival: 20 gauge in the right anticubital. IV Site on Arrival: 20 gauge in the left anticubital. IV Fluids: 0.9% NaCl at KVO. 0 mL infused prior to assistant laboratory director. Pre Procedural Pulses: right radial was 2+. Pre Procedural Pulses: bilateral dorsalis pedis was 2+. Oxygen started at 2liters/min via nasal canula. bilateral groins was prepped with chloroprep then draped in the usual sterile fashion. Baseline sample Acquired. HR: 74 BPM. Physicians notified. Physicians arrived. Physicians scrubbed in. Immediate Pre-Procedure Time Out. Correct Patient: Yes; Correct Procedure: Yes; Correct Site: Yes; Correct Patient Position: Yes; Correct Supplies: Yes; Dried Flammable Prep: Yes; Blood Products Available: N/A;. Lidocaine 1% infiltrated to the right groin. Venous access obtained. An attempt to gain access to the right femoral artery was unsuccessful. Manual pressure was held as needed to stop the bleeding. Lidocaine 1% infiltrated to the left groin. Ultrasound used to assist in acces of left groin. Arterial access obtained with micropuncture set. Arterial access obtained. 6 tamazight JR 4 guide catheter was inserted over the wire. 300cm Runthrough guidewire was advanced through the guide catheter to lesion in the mid RCA. Teleport microcatheter in and seated past lesion in the RCA. Runthrough wire out. Viperwire in through catheter. Teleport catheter out. Diamondback coronary orbital athrectomy olimpia inserted over wire. Coronary orbital athrectomy perfomed on Mid RCA. Diamondback olimpia removed. Teleport catheter inserted. VIpewire out. Runthrough guidewire was advanced through the guide catheter to lesion in the mid RCA. Results checked. Balloon inserted to lesion in the mid RCA. Inflation number : 1 A AB TREK 4.00X20 RX BALLOON was prepped and advanced across the Mid RCA , then inflated to 10 HAMILTON for 0:32 seconds. Balloon out. 4.0x 26 Stent inserted to lesion in the mid RCA. Intact stent removed, unable to cross lesion. Guideliner catheter inserted. 4.0x 26mm Stent inserted to lesion in the mid RCA. Inflation Number : 2 A MDT R ALEJANDRA 4.0X26 RICKY -Lot Number# [id number] exp date 05/01/24 was prepped and advanced across the Mid RCA. The stent was deployed at 12 HAMILTON for 0:34 seconds. Results checked. Stent balloon out over wire. 4.0x15mm NCBalloon inserted to lesion in the mid RCA. Inflation number : 3 A MDT NC EUPHORA RX [id number] BALLOON was prepped and advanced across the Mid RCA , then inflated to 14 HAMILTON for 0:38 seconds. Results checked. Balloon out. Balloon, guideliner and wire out. Guide catheter out. Post Procedure: Pulses reassessed and unchanged. PERRLA. Strong, equal hand housing grant analyst bilaterally. No VTE prophylaxis required. Medication's Wasted: Nitro = 49.0 mg. Medication's Wasted: Heparin = 4000 units. Medication's Wasted: Other = versed 1 mg. Medication's Wasted: Other = fentanyl 25 mcg. Total IV fluids: 322 mL. A Suture was successful obtaining hemostatsis at the Right Femoral vein insertion site. A Suture was successful obtaining hemostatsis at the Left Femoral artery insertion site. Post-op diagnosis: moderate to severe stenosis to prox to mid RCA, post PCI with 1 stent with orbital atherectomy. Complications: none. Estimated blood loss: 5mL-10mL. Responsiveness - Normal response to verbal stimuli; alert and oriented, PERRLA. Airway - Unaffected, no intervention required; spontaneous ventilation. Circulation: W/N/L, pulses unchanged. Nausea/Vomiting: No. Procedure completed. Patient transferred by bed to ICU. Vital chart was stopped. Access Site Site: Right Femoral vein Sheath Size: 6 Fr Hemostasis Method: Suture Hemostasis Success: Successful Site: Left Femoral artery Sheath Size: 6 Fr Hemostasis Method: Suture Hemostasis Success: Successful Procedure Medications Start: 8:51 AM Stop: 8:51 AM Medication: Versed Amount: 1 mg Route: I.V. Start: 8:51 AM Stop: 8:51 AM Medication: Fentanyl Amount: 50 mcg Route: I.V. Start: 9:06 AM Stop: 9:06 AM Medication: Versed 1 mg and Fentanyl 25 mcg Amount: 1 Route: I.V. Start: 9:30 AM Stop: 9:30 AM Medication: 0.9% Saline Amount: 250 ml Route: I.V. bolus Start: 9:50 AM Stop: 9:50 AM Medication: Versed Amount: 1 mg Route: I.V. I, the attending physician, have reviewed and verified all procedure medications. Yes, all medications given per verbal order History/Risk Factors Hypertension: Yes Dyslipidemia: Yes Peripheral Arterial Disease (PAD): No Myocardial Infarction (SC): No Obesity: No Tobacco Use: Current/Recent(w/in 1 year) Prior Interventions PCI: Yes CABG: No Valve Surgery: No Date of PCI: 01/19/2023 Report Signatures Finalized by Óscar Tipton MD on 01/25/2023 06:22 PM
[2023-01-20] MEDS: guaiFENesin-dextromethorphan UDC 10 mL 5 ML PO (12:27)
[2023-01-20] MEDS: fentaNYL 50 mcg/mL INJ 2mL IVP (12:49)
[2023-01-20] MEDS: fentaNYL 50 mcg/mL INJ 2mL 25 MCG IVP (18:07)
[2023-01-20] MEDS: sodium chloride 0.9% 1,000 ML 50 ML IV (19:00)
[2023-01-20] MEDS: temazepam 15 mg Capsule PO (23:20)
[2023-01-21] VITALS (14 sets, daily range): BP systolic 137–165; BP diastolic 74–86; PULSE 77–114; RESP 10–24; TEMP 36.6; O2SAT 91–95
--- NOTE | 2023-01-21 07:11 | USCV_ITS ---
Mitchell Diaz Age: 82 Gender: M : 1940 Exam Date: 01/21/2023 08:06 Ordering Phys: Óscar Tipton M.D ([email or web address]) Technologist: ROSEMARY Exam Location: [facility] [place] Indication: POST STEMI BP: 137 / 86 HR: 100 Rhythm: Sinus Technical Quality: Adequate MEASUREMENTS (Male / Female) Normal Values 2D ECHO LVOT Diameter 2.0 cm LV Ejection Fraction MOD 2C 65.8 % LV Ejection Fraction 2C AL 68.5 % LA Diameter 2.5 cm LA Width 2.6 cm LA Height 4.2 cm RA Width 2.9 cm RA Height 3.8 cm Aorta at Sinotubular Diameter 2.7 cm IVC Diameter 1.4 cm M-MODE Aortic Annulus Diameter 2.7 cm LA Ao Ratio MM 0.9 MV E Point Septal Separation 0.8 cm DOPPLER AV Peak Velocity 184.0 cm/s LVOT Peak Velocity 147.0 cm/s AV Area Cont Eq vti 2.5 cm squared AV Area Cont Eq pk 2.5 cm squared MV Peak Velocity 108.0 cm/s MV Area PHT 4.0 cm squared Mitral E to A Ratio 0.7 MV E' Velocity 41.5 cm/s Mitral E to MV E' Ratio 8.9 Mitral E to LV E' Lateral Ratio 7.2 Mitral E to LV E' Septal Ratio 12.0 TR Peak Velocity 118.8 cm/s TR Peak Gradient 5.6 mmHg TR Mean Velocity 85.5 cm/s TR Mean Gradient 3.5 mmHg TR Velocity Time Integral 22.8 cm TV Peak E Velocity 64.0 cm/s Right Atrial Pressure 3.0 mmHg Pulmonary Artery Systolic Pressu 8.6 mmHg PV Peak Velocity 111.0 cm/s FINDINGS Left Ventricle Left ventricle is normal in size. LV systolic function is normal with EF of 55 to 60%. Mild hypokinesis of the inferolateral wall. Grade 1 diastolic dysfunction Right Ventricle Normal in size and function Right Atrium Normal in size Left Atrium Normal in size Mitral Valve Structurally normal mitral valve. Trace mitral regurgitation Aortic Valve Grossly normal. No significant stenosis or regurgitation. Tricuspid Valve Trace tricuspid regurgitation. Insufficient TR jet to calculate RVSP. Pulmonic Valve Not well visualized Pericardium Normal Aorta Normal in size IVC Appears to be normal. CONCLUSIONS LV systolic function is normal with EF of 55-60% Grade 1 diastolic dysfunction Trace mitral regurgitation No comparison studies are available. Óscar Tipton MD (Electronically Signed) Final Date: 21 January 2023 09:36 S
[2023-01-21] MEDS: aspirin 81 mg EC Tablet PO (09:52)
[2023-01-21] MEDS: hydroxyurea 500 mg Capsule PO (09:52)
[2023-01-21] MEDS: clopidogrel 75 mg Tablet PO (09:52)
[2023-01-21] MEDS: metoprolol tartrate 25 mg Tablet PO (09:52)
[2023-01-21] MEDS: losartan 50 mg Tablet PO (09:52)
[2023-01-21] MEDS: atorvastatin 40 mg Tablet PO (09:52)
--- NOTE | 2023-01-21 10:56 | P.DS_ITS ---
Discharge Providers Date of Admission: 01/19/23 12:41 Date of Discharge: January 21, 2023 Attending Provider at Admission: Moustapha Wright MD Attending Provider at Discharge: Óscar Tipton MD Primary Care Provider: Pearl Chua MD Diagnoses at Discharge Discharge Diagnosis (1) Hypercholesteremia: Status: Acute (2) Essential hypertension: Status: Acute (3) ST elevation myocardial infarction (STEMI): Status: Inactive (4) Polycythemia rubra vera: Status: Acute Reason for Visit Reason for Visit: chest pain Brief History: 82 year old man with PMH of polycythemia vera presented to hospital with chest pain. EKG showed inferior wall ST elevation [place]. He was emergently taken to the labor relations consultant Hospital Course Hospital Course Patient had balloon angioplasty of RCA that was totally occluded. This restored flow but stent could not be advanced. Next day he underwent successful stent placement with orbital arthrectomy and DESx 1.Patient stayed stable and was discharged home in a stable condition Physical Exam Narrative: GENERAL: Alert and oriented x3 HEENT: Exam within normal limits. NECK: Supple without jugular vein distention. The carotid upstroke is normal without bruits. BACK: Exam normal. LUNGS: Clear. HEART: Regular rate and rhythm. ABDOMEN: Benign without organomegaly or tenderness. EXTREMITIES: No edema. Access site is normal NEUROLOGIC: Exam normal. SKIN: Unremarkable. Discharge Data Studies Completed and Pending Completed Studies During Hospitalization Category Date Time Status WOOD FENCE ERECTOR request for service Stat Exams 01/19/23 11:02 Completed XR chest 1V portable [id number] Stat Exams 01/19/23 10:46 Completed CV. echo complete* [id number] Routine Ultrasound 01/21/23 07:11 Completed Pending at discharge Category Date Time Status WOOD FENCE ERECTOR request for service Routine Exams 01/20/23 08:20 Taken Radiology Impressions Chest X-Ray 01/19/23 10:46 IMPRESSION: No acute cardiopulmonary abnormality. Laboratory Results WBC 10.3 10^3/uL (4.0-10.0) H 01/20/23 03:47 RBC 3.68 10^6/uL (4.1-5.3) L 01/20/23 03:47 Hgb 12.8 g/dL (11.7-16.6) 01/20/23 03:47 Hct 38.3 % (42.0-52.0) L 01/20/23 03:47 MCV 104.1 fl (80-94) H 01/20/23 03:47 MCH 34.8 pg (28.0-34.0) H 01/20/23 03:47 MCHC 33.4 g/dL (30.0-36.0) 01/20/23 03:47 RDW TNP 01/20/23 03:47 Plt Count 190 10^3/cmm (130-400) 01/20/23 03:47 MPV 12.0 fL (7.4-10.4) H 01/20/23 03:47 Neut % (Auto) 64.6 % 01/20/23 03:47 Lymph % (Auto) 20.0 % 01/20/23 03:47 [place] % (Auto) 13.0 % 01/20/23 03:47 Eos % (Auto) 1.0 % 01/20/23 03:47 Baso % (Auto) 0.9 % 01/20/23 03:47 Neut # (Auto) 6.69 10^3/uL (1.8-7.7) 01/20/23 03:47 Lymph # (Auto) 2.1 10^3/uL (0.8-4.8) 01/20/23 03:47 [place] # (Auto) 1.3 10^3/uL (0.2-0.9) H 01/20/23 03:47 Eos # (Auto) 0.1 10^3/uL (0.0-0.8) 01/20/23 03:47 Baso # (Auto) 0.1 10^3/uL (0.0-0.1) 01/20/23 03:47 Nucleated RBC % (auto) 0 % 01/20/23 03:47 Nucleated RBCs # 0.0 /100WBC 01/20/23 03:47 Poikilocytosis Trace 01/19/23 10:45 Anisocytosis 2+ H 01/19/23 10:45 Macrocytosis 3+ H 01/19/23 10:45 Target Cells Trace 01/19/23 10:45 Acanthocytes (Spur) Trace 01/19/23 10:45 PT 14.30 SECONDS (12.1-14.9) 01/19/23 10:45 INR 1.07 (0.8-1.2) 01/19/23 10:45 APTT 28.1 SECONDS (23.9-36.7) 01/19/23 10:45 Sodium 135 mmol/L (136-145) L 01/20/23 03:47 Potassium 4.2 mmol/L (3.5-5.1) 01/20/23 03:47 Chloride 101 mmol/L (98-107) 01/20/23 03:47 Carbon Dioxide 24 mmol/L (22-29) 01/20/23 03:47 Anion Gap 14.2 (5-19) 01/20/23 03:47 BUN 12 mg/dL (8-23) 01/20/23 03:47 Creatinine 1.0 mg/dL (0.7-1.2) 01/20/23 03:47 GFR Calculation Not Reportable 01/20/23 03:47 Glucose 80 mg/dL (65-115) 01/20/23 03:47 Calculated Osmolality 279 mOsm/kg (285-295) L 01/20/23 03:47 Calcium 8.9 mg/dL (8.5-10.5) 01/20/23 03:47 Total Bilirubin 0.6 mg/dL (0.15-1.2) 01/19/23 10:45 AST 17 U/L (0-40) 01/19/23 10:45 ALT 19 U/L (0-41) 01/19/23 10:45 Alkaline Phosphatase 113 U/L (40-130) 01/19/23 10:45 Troponin T Baseline 18 ng/L (0-15) H 01/19/23 10:45 Troponin T 120 Minute 19.16 ng/L (0-15) H 01/19/23 12:46 Delta Troponin T 1.16 ABS# (0-10) 01/19/23 12:46 Troponin T Hi Sens 6Hr 74.26 ng/L (0-15) H 01/19/23 16:41 Troponin T Hi Sens 6Hr Delta 56.26 ng/L (0-12) H* 01/19/23 16:41 NT-Pro-B Natriuret Pep 251 pg/mL (0-450) 01/19/23 10:45 Total Protein 7.3 g/dL (6.6-8.7) 01/19/23 10:45 Albumin 4.4 g/dL (3.5-5.2) 01/19/23 10:45 Globulin 2.9 g/dL (1.3-4.6) 01/19/23 10:45 Lipase 23 U/L (13-60) 01/19/23 10:45 Vitals Last Vital Signs Temp 97.9 F 01/21/23 08:00 Pulse 79 01/21/23 10:00 Resp 21 H 01/21/23 10:00 BP 137/86 01/21/23 10:00 Pulse Ox 94 01/21/23 10:00 O2 Del Method Nasal Cannula 01/21/23 10:00 O2 Flow Rate 2 01/21/23 10:00 Discharge Plan Discharge Patient Disposition: Home Condition: Stable Prescriptions: New losartan 50 mg Tablet 50 mg PO DAILY Qty: 90 3RF clopidogrel 75 mg Tablet 75 mg PO DAILY Qty: 90 3RF metoprolol tartrate 25 mg Tablet 25 mg PO BID@0900,2100 Qty: 120 3RF Continued atorvastatin 40 mg tablet 40 mg PO DAILY spironolactone 25 mg tablet 25 mg PO DAILY aspirin 81 mg tablet,delayed release (DR/EC) 81 mg PO DAILY cholecalciferol (vitamin D3) 125 mcg (5,000 unit) capsule 125 mcg PO DAILY prochlorperazine maleate [Compazine] 10 mg tablet 10 mg PO Q6H PRN (Reason: nausea and vomiting) Qty: 30 3RF hydroxyurea 500 mg capsule 500 mg PO BID Qty: 60 1RF isosorbide mononitrate 30 mg tablet extended release 24 hr 30 mg PO DAILY nitroglycerin 0.4 mg Tablet, Sublingual 0.4 mg SUBLINGUAL Q5M PRN (Reason: Chest Pain) Rx Instructions: do not exceed 3 doses per episode hydroxyzine HCl 10 mg tablet 10 mg PO Q6H PRN (Reason: Anxiety) Discontinued amlodipine-benazepril 10-20 mg capsule 1 cap PO DAILY Discharge Orders: Discharge Order (Routine); Ordered 01/21/23 Ordered By: Óscar Tipton Referrals: Pearl Chua MD [Primary Care Provider] - 01/28/23 2:30 pm (please keep current appt. ) Discharge Diet: Cardiac Discharge Activity: Increase activity as tolerated Patient Instructions: Metoprolol (By mouth), Losartan (By mouth), Clopidogrel (By mouth), Coronary Angioplasty (DC), Heart Healthy Diet (ED), Opioid Safety Activity Restrictions/Additional Instructions: Please keep your appointment with Dr Tipton's office. Discharge Attestations Time Spent in Discharge Care*: greater than 30 min Quality Metrics Clinical Quality Measures [ Acute Myocardial Infaction { Clinical Trial Participant: No; Contraindication to aspirin: None; Aspirin prescribed; Contraindication to statin: None; Statin prescribed; Contraindication to PCI: None; PCI performed;}] Coding Level of Care Code Acute Code for Chg Fwd Diagnoses Hypercholesteremia E78.[address] elevation myocardial infarction (STEMI) I21.3 Polycythemia rubra vera D45
--- NOTE | 2023-01-21 11:51 | PC.NURSE ---
Discharge instructions provided and discussed. All questions answered. Medication taken today and due later thoroughly discussed. Care noted provided on new medications, Post nursery laborer care and Heart healthy diet. Pt discharged.
== END 2023-01-21 11:48 | disposition home or self-care (01) | DRG 247 ==
LOC: ER 10:46 → CCL 11:04 → ICU 11:38
PROVIDERS: Internal Medicine; Admitting Provider Internal Medicine Cardiovascular Disease; Emergency Provider Emergency Medicine; PCP Family Medicine; Visit Provider Internal Medicine Cardiovascular Disease
PROC: 02703ZZ Dilation of Coronary Artery, One Artery, Percutaneous Approach (ICD-10-PCS; principal; 2023-01-19 11:00)
PROC: 02703ZZ Dilation of Coronary Artery, One Artery, Percutaneous Approach (ICD-10-PCS; 2023-01-19 11:00)
PROC: 027034Z Dilation of Coronary Artery, One Artery with Drug-eluting Intraluminal Device, Percutaneous Approach (ICD-10-PCS; principal; 2023-01-20 09:00)
DX: I21.11 ST elevation (STEMI) myocardial infarction involving right coronary artery (principal); I25.10 Atherosclerotic heart disease of native coronary artery without angina pectoris; E78.00 Pure hypercholesterolemia, unspecified; I10 Essential (primary) hypertension; D45 Polycythemia vera; Z79.82 Long term (current) use of aspirin; E78.5 Hyperlipidemia, unspecified; F32.A Depression, unspecified; Z79.899 Other long term (current) drug therapy; F17.210 Nicotine dependence, cigarettes, uncomplicated
CPT/HCPCS: 36415; 71045; 80048; 80053; 83690; 83880; 84484; 85025; 85610; 85730; 92920; 93005; 93306; 93458; 96361; 96365; 96372; 96374; 96375; 96376; 99152; 99153; 99285; C1724; C1725; C1769; C1874; C1887; C1894; C9602; J0461; J1644; J1650; J2250; J3010; J3490; J7030; J8999; Q9967

== ENCOUNTER 2023-01-29 09:07 | Oncology outpatient (recurring) (ONCR) | payer MEDICARE, OTHER, SELFPAY ==
--- NOTE | 2023-01-21 07:50 | PC.NURSE ---
Dr Tipton, in room. Stop IV fluids if creatinine and BUN ok. IVF stopped.
== END 2023-01-31 23:59 | disposition home or self-care (01) ==
LOC: ONCMED 09:07
PROVIDERS: PCP Family Medicine; Visit Provider Internal Medicine Medical Oncology
DX: D45 Polycythemia vera (principal); D72.820 Lymphocytosis (symptomatic); D75.839 Thrombocytosis, unspecified; R53.83 Other fatigue; D50.9 Iron deficiency anemia, unspecified; F17.210 Nicotine dependence, cigarettes, uncomplicated; Z79.899 Other long term (current) drug therapy
CPT/HCPCS: 99214

== ENCOUNTER → 2023-02-05 12:17 | Outpatient (BNVA) | payer MEDICARE, OTHER, SELFPAY | PROVIDERS: PCP Family Medicine; Visit Provider Internal Medicine | DX: E78.00 Pure hypercholesterolemia, unspecified (principal); I25.10 Atherosclerotic heart disease of native coronary artery without angina pectoris; I10 Essential (primary) hypertension; D45 Polycythemia vera; F17.210 Nicotine dependence, cigarettes, uncomplicated | CPT/HCPCS: 99214 ==

== ENCOUNTER 2023-03-10 10:09 | Oncology outpatient (recurring) (ONCR) | payer MEDICARE, OTHER, SELFPAY | END 2023-04-03 23:59 | disposition home or self-care (01) | LOC: ONCMED 10:10 | PROVIDERS: PCP Family Medicine; Visit Provider Internal Medicine Medical Oncology | DX: D45 Polycythemia vera (principal); D72.820 Lymphocytosis (symptomatic); I25.2 Old myocardial infarction; Z95.5 Presence of coronary angioplasty implant and graft; Z79.899 Other long term (current) drug therapy; F17.210 Nicotine dependence, cigarettes, uncomplicated | CPT/HCPCS: 99214 ==

== ENCOUNTER 2023-05-19 11:01 | Oncology outpatient (recurring) (ONCR) | payer MEDICARE, OTHER, SELFPAY | END 2023-06-03 23:59 | disposition home or self-care (01) | PROVIDERS: PCP Family Medicine; Visit Provider Internal Medicine Medical Oncology | DX: D45 Polycythemia vera (principal) | CPT/HCPCS: 99214 ==

== ENCOUNTER → 2023-08-06 14:40 | Outpatient (BNVA) | payer MEDICARE, OTHER, SELFPAY | PROVIDERS: PCP Family Medicine; Visit Provider Internal Medicine | DX: E78.00 Pure hypercholesterolemia, unspecified (principal); I25.10 Atherosclerotic heart disease of native coronary artery without angina pectoris; I10 Essential (primary) hypertension; D45 Polycythemia vera; R06.00 Dyspnea, unspecified; F17.210 Nicotine dependence, cigarettes, uncomplicated | CPT/HCPCS: 99214 ==

== ENCOUNTER 2023-10-27 08:16 | Outpatient (CLI) | payer MEDICARE, OTHER, SELFPAY ==
--- NOTE | 2023-10-27 08:45 | USCV_ITS ---
Mitchell Diaz Age: 82 Gender: M : 1940 Exam Date: 10/27/2023 09:01 Ordering Phys: Óscar Tipton M.D ([email or web address]) Technologist: JOE Exam Location: [facility] – [place] Indication: CP, SOB BP: 144 / 62 HR: 112 Rhythm: Sinus Technical Quality: Adequate MEASUREMENTS (Male / Female) Normal Values 2D ECHO LV Diastolic Diameter PLAX 4.9 cm 4.2 - 5.9 / 3.9 - 5.3 cm IVS Diastolic Thickness 0.9 cm 0.6 - 1.0 / 0.6 - 0.9 cm IVS Systolic Thickness 0.8 cm LVPW Diastolic Thickness 0.8 cm 0.6 - 1.0 / 0.6 - 0.9 cm LVPW Systolic Thickness 0.9 cm LVOT Diameter 2.0 cm LV Ejection Fraction 2D Teich 39.1 % LV Ejection Fraction MOD 2C 54.1 % LV Ejection Fraction 2C AL 56.7 % LA Diameter 2.3 cm RA Systolic Volume 4C AL 16.2 ml RA Systolic Volume 4C MOD 15.4 ml Aorta at Sinotubular Diameter 2.9 cm IVC Diameter 1.2 cm M-MODE LA Ao Ratio MM 0.7 AV Cusp Separation MM 0.9 cm DOPPLER AV Peak Velocity 103.0 cm/s LVOT Peak Velocity 108.0 cm/s AV Area Cont Eq vti 2.7 cm squared AV Area Cont Eq pk 3.3 cm squared MV Peak Velocity 83.0 cm/s MV Area PHT 2.5 cm squared Mitral E to A Ratio 0.7 TV Peak Velocity 83.8 cm/s TR Peak Velocity 84.5 cm/s TR Peak Gradient 2.9 mmHg TR Mean Velocity 59.0 cm/s TR Mean Gradient 1.6 mmHg TR Velocity Time Integral 16.5 cm Right Atrial Pressure 3.0 mmHg Pulmonary Artery Systolic Pressu 5.9 mmHg PV Peak Velocity 73.5 cm/s RV Ejection Time 0.4 s FINDINGS Left Ventricle Technically limited quality echocardiogram because of poor ultrasonic windows. LV systolic function is normal with EF of 50 to 55%. No regional wall motion abnormalities are seen. Grade 1 diastolic dysfunction. Right Ventricle Normal in size and function. Right Atrium Normal in size Left Atrium Normal in size Mitral Valve Structurally normal mitral valve. Mild mitral regurgitation. Aortic Valve Grossly normal. No significant stenosis or regurgitation. Tricuspid Valve Pulmonary artery systolic pressure is normal. Trace tricuspid regurgitation. Pulmonic Valve Not well visualized Pericardium Normal Aorta Normal in size IVC Appears to be normal CONCLUSIONS Technically limited quality echocardiogram because of poor ultrasonic windows. LV systolic function is normal with EF of 50 to 55%. Grade 1 diastolic dysfunction. Mild mitral regurgitation Trace tricuspid regurgitation Compared to prior echocardiogram from 2022, no significant changes are seen Óscar Tipton MD (Electronically Signed) Final Date: 02 November 2023 13:08 S
== END 2023-10-27 08:17 | disposition home or self-care (01) ==
PROVIDERS: PCP Family Medicine; Visit Provider Internal Medicine
DX: R07.9 Chest pain, unspecified (principal); R06.02 Shortness of breath
CPT/HCPCS: 93306

== ENCOUNTER 2024-02-11 09:46 | Oncology outpatient (recurring) (ONCR) | payer MEDICARE, OTHER, SELFPAY ==
[2024-02-11 10:13] LABS: Basophils # 0.1 10^3/uL (0.0-0.1); Basophils % 0.7 %; Eosinophils # 0.1 10^3/uL (0.0-0.8); Eosinophils % 0.9 %; Hematocrit 41.4 % (37-53); Lymphocytes # 1.9 10^3/uL (0.8-4.8); Lymphocytes % 22.8 %; Mean Corpuscular HGB Conc 34.5 g/dL (30-55); Mean Corpuscular Hemoglobin 41.7 pg (27-33); Mean Corpuscular Volume 120.7 fl (82-101); Mean Platelet Volume 11.5 fL (7.4-10.4); Monocytes # 1.1 10^3/uL (0.2-0.9); Monocytes % 13.1 %; Neutrophils # 5.23 10^3/uL (1.8-7.7); Neutrophils % 61.9 %; Nucleated Red Blood Cells % 0 %; Platelet Count 133 10^3/cmm (157-399); Red Blood Count 3.43 10^6/uL (3.85-5.65); Red Cell Distribution Width 12.1 % (12.1-15.1); White Blood Count 8.46 10^3/uL (3.29-11.43)
[2024-02-11 10:36] LABS: Alanine Aminotransferase 25 U/L (0-41); Albumin Level 3.9 g/dL (3.5-5.2); Alkaline Phosphatase 91 U/L (40-130); Anion Gap 11.7 (5-19); Aspartate Amino Transferase 20 U/L (0-40); Blood Urea Nitrogen 19 mg/dL (8-23); Calcium 8.8 mg/dL (8.5-10.5); Carbon Dioxide 27 mmol/L (22-29); Chloride 101 mmol/L (98-107); Creatinine Clr Calc Pharmacy 54.4144; Glucose 111 mg/dL (65-115); Lactate Dehydrogenase 159 U/L (135-225); Osmolality Calculated 283 mOsm/kg (285-295); Potassium 4.7 mmol/L (3.5-5.1); Sodium 135 mmol/L (136-145); Total Bilirubin 0.5 mg/dL (0.15-1.2); Total Protein 6.9 g/dL (6.6-8.7)
== END 2024-03-03 23:59 | disposition home or self-care (01) ==
LOC: ONCMED 09:46
PROVIDERS: PCP Family Medicine; Visit Provider Internal Medicine Medical Oncology
DX: D45 Polycythemia vera (principal); Z79.899 Other long term (current) drug therapy; I25.10 Atherosclerotic heart disease of native coronary artery without angina pectoris; E78.00 Pure hypercholesterolemia, unspecified; I10 Essential (primary) hypertension; F17.200 Nicotine dependence, unspecified, uncomplicated
CPT/HCPCS: 36415; 80053; 83615; 85025; 99213; 99214

== ENCOUNTER 2024-08-23 15:08 | Oncology outpatient (recurring) (ONCR) | payer MEDICARE, OTHER, SELFPAY | END 2024-09-03 23:59 | disposition home or self-care (01) | LOC: ONCMED 15:10 | PROVIDERS: PCP Family Medicine; Visit Provider Internal Medicine | DX: D45 Polycythemia vera (principal); F17.210 Nicotine dependence, cigarettes, uncomplicated; I25.2 Old myocardial infarction; Z79.899 Other long term (current) drug therapy | CPT/HCPCS: 99213 ==

== ENCOUNTER → 2024-08-27 10:59 | Outpatient (BNVA) | payer MEDICARE, OTHER, SELFPAY | PROVIDERS: PCP Family Medicine; Visit Provider Internal Medicine | DX: E78.00 Pure hypercholesterolemia, unspecified (principal); I25.10 Atherosclerotic heart disease of native coronary artery without angina pectoris; I10 Essential (primary) hypertension; D45 Polycythemia vera; F17.210 Nicotine dependence, cigarettes, uncomplicated; I25.2 Old myocardial infarction | CPT/HCPCS: 99214 ==

== ENCOUNTER 2025-02-22 14:21 | Oncology outpatient (recurring) (ONCR) | payer MEDICARE, OTHER, SELFPAY | END 2025-03-03 23:59 | disposition home or self-care (01) | PROVIDERS: PCP Family Medicine; Visit Provider Internal Medicine | DX: D45 Polycythemia vera (principal); E78.00 Pure hypercholesterolemia, unspecified; F17.210 Nicotine dependence, cigarettes, uncomplicated; I25.10 Atherosclerotic heart disease of native coronary artery without angina pectoris; I10 Essential (primary) hypertension; Z79.899 Other long term (current) drug therapy | CPT/HCPCS: 99214 ==